=== PATIENT | female | born 1995 | race Caucasian/White ===

== ENCOUNTER 2017-07-03 19:05 | Emergency (ER) | payer SELFPAY ==
[~2017-07-03] VITALS: Ht 160 cm; Wt 110.7 kg
[2017-07-03 19:19] VITALS: Ht 160 cm; Wt 110.7 kg
[2017-07-03 21:17] VITALS: BP 115/68
== END 2017-07-03 21:17 | disposition home or self-care (01) ==
LOC: ED 19:05
DX: R07.89 Other chest pain (principal); F41.1 Generalized anxiety disorder; K21.9 Gastro-esophageal reflux disease without esophagitis